=== PATIENT | male | born 1940 | race Caucasian/White ===

== ENCOUNTER → 2018-04-21 | Outpatient (CLI) | payer MEDICARE ==
[~2018-04-21] MED LIST: ASPI-496 PO; ASPI325T80 PO; ATOR40TA78 PO; CLOP75TA52 PO; LISI5TAB7 PO; METO25TA35 PO; None per pt.; OMNIPAQUE 350 MG/ML, 150 ML BOTTLE ONE; OXYC-302 PO
== END | disposition home or self-care (01) ==
LOC: RAD 13:31
PROVIDERS: ATTEND Urology
DX: K40.90 Unilateral inguinal hernia, without obstruction or gangrene, not specified as recurrent (principal); N32.89 Other specified disorders of bladder; R31.0 Gross hematuria
CPT/HCPCS: 74178; Q9967

== ENCOUNTER → 2018-04-22 | Outpatient (CLI) | payer MEDICARE ==
[~2018-04-22] MED LIST changes: -OMNIPAQUE 350 MG/ML, 150 ML BOTTLE ONE
[2018-04-22 14:58] LABS: MICROSCOPIC INDICATED
[2018-04-22 15:04] LABS: ALBUMIN 3.6 g/dL (3.4-5.0); ANION GAP 6 mmol/L (5-15); CALCIUM 8.7 mg/dL (8.5-10.1); CHLORIDE 108 mmol/L (98-107)
[2018-04-22 15:13] LABS: ALANINE AMINOTRANSFERASE 45 U/L (12-78); ALKALINE PHOSPHATASE 95 U/L (45-117); BILIRUBIN,TOTAL 0.5 mg/dL (0.2-1.0); CREATININE 0.73 mg/dL (0.7-1.3)
== END | disposition home or self-care (01) ==
LOC: STAR 13:28
PROVIDERS: ATTEND Urology
DX: C67.9 Malignant neoplasm of bladder, unspecified (principal); R94.31 Abnormal electrocardiogram [ECG] [EKG]
CPT/HCPCS: 36415; 80053; 81001; 87086; 93005

== ENCOUNTER 2018-04-27 12:35 | Day surgery (SDC) | payer MEDICARE ==
[2018-04-22 14:00] VITALS: BP 112/72
[~2018-04-27] VITALS: Ht 172.7 cm; Wt 70.8 kg
[~2018-04-27 12:35] MED LIST changes: +MITOMYCIN INTVESIC ONE; +WATER FOR INJECTION STERILE INTVESIC ONE
[2018-04-27] MEDS ORDERED: LACTATED RINGERS 1,000 ML IV SCH (12:57)
[2018-04-27 13:00] VITALS: BP 112/72
[2018-04-27] MEDS ORDERED: ROCURONIUM 10 MG/ML,10ML ONE (14:21)
[2018-04-27] MEDS ORDERED: PROPOFOL 10 MG/ML, 20ML ONE (14:21)
[2018-04-27] MEDS ORDERED: DEXAMETHASONE 4 MG/ML, 1ML ONE (14:21)
[2018-04-27] MEDS ORDERED: ONDANSETRON 2MG/ML, 2ML ONE (14:21)
[2018-04-27] MEDS ORDERED: EPHEDRINE 50 MG/ML, 1ML ONE (14:21)
[2018-04-27] MEDS ORDERED: OMNIPAQUE 350 MG/ML, 50 ML BOTTLE IV ONE ×2 (14:25→15:59)
[2018-04-27] MEDS ORDERED: FENTANYL PF 100 MCG/2ML ONE (14:31)
[2018-04-27] MEDS ORDERED: OPIUM/BELLADONNA SUPP.RECT 16.2-60 MG ONE (14:45)
[2018-04-27] MEDS ORDERED: MITOMYCIN 40 MG IVPB ONE (14:50)
[2018-04-27] MEDS ORDERED: HYDROmorphone 2 MG/ML, 1ML IVPush PRN (15:00)
[2018-04-27] MEDS ORDERED: LABETALOL 5MG/ML, 20ML IV PRN (15:00)
[2018-04-27] MEDS ORDERED: OXYcodone 5 MG/5 ML ORAL.SOL UDC PO PRN (15:00)
[2018-04-27] MEDS ORDERED: hydrALAzine 20 MG/ML, 1ML IV PRN (15:00)
[2018-04-27] MEDS ORDERED: FENTANYL PF 100 MCG/2ML IV PRN (15:00)
[2018-04-27] MEDS ORDERED: HALOPERIDOL 5 MG/ML IV PRN (15:00)
[2018-04-27] MEDS ORDERED: ALBUTEROL SULFATE 2.5 MG/3 ML NPPB PRN (15:00)
[2018-04-27] MEDS ORDERED: PROMETHAZINE 25 MG/ML, 1ML IV PRN (15:00)
[2018-04-27] MEDS ORDERED: SUGAMMADEX 200 MG/2 ML IVPush ONE (15:31)
[2018-04-27] MEDS ORDERED: ATORVASTATIN 40 MG TABLET PO SCH (21:00)
[2018-04-28] MEDS ORDERED: METOPROLOL TARTRATE 25 MG TABLET PO SCH (09:00)
[2018-04-28] MEDS ORDERED: LISINOPRIL 5 MG TABLET PO SCH (09:00)
== END 2018-04-27 19:40 | disposition home or self-care (01) ==
LOC: OUT 12:35 → 4NOR 17:23 → OUT 19:40
PROVIDERS: ATTEND Urology
DX: D09.0 Carcinoma in situ of bladder (principal); C67.4 Malignant neoplasm of posterior wall of bladder; I25.10 Atherosclerotic heart disease of native coronary artery without angina pectoris; Z79.82 Long term (current) use of aspirin; Z98.890 Other specified postprocedural states; Z96.652 Presence of left artificial knee joint
CPT/HCPCS: 51720; 52234; 74018; 88305; 88307; J1100; J2405; J2704; J3010; J7120; J9280; Q9967; 76001; G0378

== ENCOUNTER 2018-08-10 15:35 | Day surgery (SDC) | payer MEDICARE ==
[~2018-08-10] VITALS: Ht 172.7 cm; Wt 71.5 kg
[~2018-08-10 15:35] MED LIST changes: -MITOMYCIN INTVESIC ONE; -WATER FOR INJECTION STERILE INTVESIC ONE
[2018-08-10 15:56] VITALS: BP 119/66
[2018-08-10] MEDS ORDERED: LACTATED RINGERS 1,000 ML IV SCH (15:56)
[2018-08-10] MEDS ORDERED: PHENYLEPHRINE 10 MG/ML ONE (16:19)
[2018-08-10] MEDS ORDERED: FENTANYL PF 250 MCG/5ML ONE (16:39)
[2018-08-10] MEDS ORDERED: MIDAZOLAM 1 MG/ML, 2ML ONE (16:39)
[2018-08-10] MEDS ORDERED: DEXAMETHASONE 4 MG/ML, 1ML ONE (16:42)
[2018-08-10] MEDS ORDERED: LIDOCAINE-MPF 2% ,5ML ONE (16:42)
[2018-08-10] MEDS ORDERED: ONDANSETRON 2MG/ML, 2ML ONE (16:42)
[2018-08-10] MEDS ORDERED: PROPOFOL 10 MG/ML, 20ML ONE (16:42)
[2018-08-10] MEDS ORDERED: SUCCINYLCHOLINE 20 MG/ML, 10ML ONE (16:42)
[2018-08-10] MEDS ORDERED: OPIUM/BELLADONNA SUPP.RECT 16.2-60 MG ONE (16:56)
[2018-08-10] MEDS ORDERED: HYDROmorphone 2 MG/ML, 1ML IVPush PRN (17:00)
[2018-08-10] MEDS ORDERED: OXYcodone 5 MG/5 ML ORAL.SOL UDC PO PRN (17:00)
[2018-08-10] MEDS ORDERED: ACETAMINOPHEN 325 MG TABLET PO PRN (17:00)
[2018-08-10] MEDS ORDERED: HALOPERIDOL 5 MG/ML IV PRN (17:00)
[2018-08-10] MEDS ORDERED: STERILE WATER INTVESIC ONE (17:00)
[2018-08-10] MEDS ORDERED: FENTANYL PF 100 MCG/2ML IV PRN (17:00)
[2018-08-10] MEDS ORDERED: hydrALAzine 20 MG/ML, 1ML IV PRN (17:00)
[2018-08-10] MEDS ORDERED: MITOMYCIN INTVESIC ONE (17:00)
[2018-08-10] MEDS ORDERED: PROMETHAZINE 25 MG/ML, 1ML IV PRN (17:00)
[2018-08-10] MEDS ORDERED: MEPERIDINE/PF 25MG/0.5ML IVPush PRN (17:00)
[2018-08-10] MEDS ORDERED: ALBUTEROL/IPRATROPIUM 2.5MG/0.5MG, 3 ML NPPB PRN (17:00)
[2018-08-10] MEDS ORDERED: ATORVASTATIN 40 MG TABLET PO SCH (21:00)
[2018-08-11] MEDS ORDERED: METOPROLOL TARTRATE 25 MG TABLET PO SCH (09:00)
[2018-08-11] MEDS ORDERED: LISINOPRIL 5 MG TABLET PO SCH (09:00)
== END 2018-08-10 21:40 | disposition home or self-care (01) ==
LOC: OR 15:35 → 4NOR 18:30 → OR 21:40
PROVIDERS: ATTEND Urology
DX: N30.30 Trigonitis without hematuria (principal); N30.90 Cystitis, unspecified without hematuria; N32.89 Other specified disorders of bladder; I10 Essential (primary) hypertension; I25.2 Old myocardial infarction; Z79.82 Long term (current) use of aspirin; Z79.899 Other long term (current) drug therapy; Z87.891 Personal history of nicotine dependence; Z95.5 Presence of coronary angioplasty implant and graft; Z96.652 Presence of left artificial knee joint
CPT/HCPCS: 52204; 52234; 88305; C1769; J0330; J1100; J2250; J2370; J2405; J2704; J3010; J7120; J9280; G0378